=== PATIENT | female | born 1975 | race Caucasian/White ===

== ENCOUNTER → 2017-09-03 | Outpatient (CLI) | payer BC ==
[~2017-09-03] MED LIST: AMOX1TAB61 PO; ATROPINE; CALC-525 PO; DIPH1TAB6 PO; DIPH25CA61 PO; HYDR-3240 PO; MIRT15TA4 PO; MULT-34 PO; No meds per pt.; OMEP-110 PO; ONDA4TAB7 PO; OXYC1TAB7 PO; TRAS440V IV
== END | disposition home or self-care (01) ==
LOC: CFH 08:38
PROVIDERS: ATTEND Internal Medicine Hematology & Oncology
DX: Z13.820 Encounter for screening for osteoporosis (principal); C50.212 Malignant neoplasm of upper-inner quadrant of left female breast; M85.89 Other specified disorders of bone density and structure, multiple sites
CPT/HCPCS: 77080